=== PATIENT | female | born 1950 | race Caucasian/White ===

== ENCOUNTER → 2016-09-29 | Outpatient (CLI) | payer BC, OTHER ==
[~2016-09-29] MED LIST: IOPAMIDOL (ISOVUE 370) 100 ML BTL IV ONE
== END ==
LOC: FIMAGING 15:07
PROVIDERS: ATTEND Internal Medicine
DX: R07.9 Chest pain, unspecified (principal); R00.0 Tachycardia, unspecified; R06.02 Shortness of breath; R79.9 Abnormal finding of blood chemistry, unspecified; I77.9 Disorder of arteries and arterioles, unspecified
CPT/HCPCS: Q9967

== ENCOUNTER 2016-12-22 19:34 | Inpatient (IN) | payer BC, OTHER ==
--- NOTE | 2016-12-22 19:59 | EDPHY ---
H & P Stated Complaint: abdominal pain Time Seen by Provider: 12/22/16 19:58 - Personal History Tetanus Vaccine Date: 05/2011 - Medical/Surgical History Hx Asthma: No Hx Chronic Respiratory Disease: No Hx Diabetes: Yes Hx Cardiac Disease: No Hx Renal Disease: No Hx Cirrhosis: No Hx Alcoholism: Yes Hx HIV/AIDS: No Hx Splenectomy or Spleen Trauma: No Other PMH: chronic diarrhea. HTN, - Social History Smoking Status: Never smoked Constitutional: Initial Vital Signs Temperature (C) 37.0 C 12/22/16 19:41 Heart Rate 105 H 12/22/16 19:41 Respiratory Rate 18 12/22/16 19:41 Blood Pressure 170/97 H 12/22/16 19:41 O2 Sat (%) 98 12/22/16 19:41 O2 Delivery Mode Room Air Allergies/Adverse Reactions: benztropine mesylate [From Cogentin] Allergy (Severe, Verified 08/06/14 08:07) MUSCLE JERKING haloperidol [From Haldol] Allergy (Severe, Verified 08/06/14 08:07) MUSCLE JERKING haloperidol lactate [From Haldol] Allergy (Severe, Verified 08/06/14 08:07) MUSCLE JERKING Home Medications: Medication Instructions Recorded Bisacodyl [Bisacodyl (*)] 10 mg PO PRN PRN 10/03/13 Bumetanide [Bumex (*)] 1 mg PO DAILY 10/03/13 Estrogens,Conjugated [Premarin 0.625 mg PO DAILY 10/03/13 0.625 MG (*)] Gabapentin [Neurontin 300 MG (*)] 600 mg PO BID 10/03/13 ARIPiprazole [Abilify 10 mg (*)] 10 mg PO HS #14 tab 02/15/14 Bumetanide [Bumex (*)] 1 mg PO DAILY #14 tab 02/15/14 Diazepam [Valium 5 MG (*)] 5 mg PO HS #14 tab 02/15/14 Estrogens,Conjugated [Premarin 0.625 mg PO DAILY #14 tab 02/15/14 0.625 MG (*)] Gabapentin [Neurontin 400 MG (*)] 400 mg PO TID 14 Days cap 02/15/14 LORazepam [Ativan (*)] 0.5 mg PO DAILY PRN #10 tab 02/15/14 Effexor Xr 75MG (RX) 08/06/14 Lisinopril 08/06/14 Metformin HCl 08/06/14 Medical Decision Making - Diagnostics Imaging Results: Study: CT of the abdomen Indication: Abdominal pain Results: CT scan of the body parts was obtained. The results of the study are normal. The study was read by the radiologist, Dr. Llanos. I viewed the images myself on the PACS system. Imaging: Discussed imaging studies w/ supreme court justice Radiologist, I viewed and interpreted images myself ED Course/Re-evaluation: CHIEF COMPLAINT: Abdominal pain, nausea, vomiting HISTORY OF PRESENT ILLNESS: The patient is a 66 y/o female complaining of abdominal pain, nausea, vomiting, and diarrhea onset this morning. Yesterday her refrigerator broke and she believed she may have ingested bad food. She experienced gas and stomach pains all night. This morning she had diarrhea. She took two loperamide and no longer experienced diarrhea but her stomach pains and gas got worse. She vomited twice before coming to the ED. She had a radical hysterectomy in 2012 but still has an appendix. REVIEW OF SYSTEMS: A 10 point review of systems was performed and is negative with the exception of the elements mentioned in the history of present illness. PHYSICAL EXAM: HR, BP, O2 Sat, RR. Temp noted General Appearance: Alert, well hydrated, appropriate, and non-toxic appearing. Head: Atraumatic without scalp tenderness or obvious injury Eyes: Pupils equal, round, reactive to light and accommodation, EOMI, no trauma , no injection. Ears: Clear bilaterally, no perforation, normal landmarks Nose: Atraumatic, no rhinorrhea, clear. Throat: There is no erythema or exudates, no lesions, normal tonsils, mucus membranes moist. Neck: Supple, nontender, no lymphadenopathy. Respiratory: No retractions, no distress, no wheezes, and no accessory muscle use. Lungs are clear to auscultation bilaterally. Cardiovascular: Regular rate and rhythm, no murmurs, rubs, or gallops. Good capillary refill all extremities. Gastrointestinal: Tenderness in the lower right quadrant extending into her back, worse with palpation, abdomen is soft, non-distended, no masses, no rebound, no peritoneal signs. Musculoskeletal: Normal active ROM of all extremities, atraumatic. Neurological: Alert, appropriate, and interactive. The patient has normal DTRs and non-focal cranial nerves, motor, sensory, and cerebellar exam. Skin: No rashes, good turgor, no nodules on palpation. Past medical history: Denies Past surgical history: Radical hysterectomy but left appendix Family history: Non-contributory Social history: , mother, lives in [place] DIAGNOSTICS/PROCEDURES/CRITICAL CARE TIME: DIFFERENTIAL DIAGNOSIS: The differential diagnosis for the patient's abdominal pain included but was not limited to diverticulitis, ovarian cyst, pelvic inflammatory disease, ovarian torsion, urinary tract infection, cholecystitis, and appendicitis. MEDICAL DECISION MAKING: The patient is a 66 y/o female complaining of nausea, vomiting, diarrhea, and abdominal pain. On exam her abdomen is tender in the lower right quadrant extending into the back. She denies any associated symptoms. 4 mg Zofran, fluids, and abdominal CT with contrast ordered. 2126: Labs show elevated white blood cells and liver enzymes, and significantly elevated lipase. Waiting on imaging for further information. 2141: I spoke with Dr. Nikole Llanos, radiology, regarding this patient's images. Her images show her gallbladder has been removed but no acute processes. I plan to admit. 2143: I spoke with the hospitalist service regarding this patient. Dr. Caenla agrees to admit. I am consulting with Dr. Downing, gastroenterology. I will treat presumptively with antibiotic for possible cholangitis. 5: I spoke with Dr. Downing regarding this patient. He agrees to consult. - Data Points Laboratory Results: Laboratory Results 12/22/16 20:20 12/22/16 20:20 12/22/16 12/22/16 12/22/16 20:24 20:20 20:20 WBC 12.29 10^3/uL H 10^3/uL (3.80-9.50) RBC 4.07 10^6/uL L 10^6/uL (4.18-5.33) Hgb 12.6 g/dL g/dL (12.6-16.3) POC Hgb 12.9 gm/dL gm/dL (12.6-16.3) Hct 36.2 % L % (38.0-47.0) POC Hct 38 % % (38-47) MCV 88.9 fL fL (81.5-99.8) MCH 31.0 pg pg (27.9-34.1) MCHC 34.8 g/dL g/dL (32.4-36.7) RDW 12.4 % % (11.5-15.2) Plt Count 291 10^3/uL 10^3/uL (150-400) MPV 9.3 fL fL (8.7-11.7) Neut % (Auto) 70.8 % % (39.3-74.2) Lymph % (Auto) 17.9 % % (15.0-45.0) [place] % (Auto) 8.6 % % (4.5-13.0) Eos % (Auto) 1.6 % % (0.6-7.6) Baso % (Auto) 0.7 % % (0.3-1.7) Nucleat RBC Rel Count 0.0 % % (0.0-0.2) Absolute Neuts (auto) 8.70 10^3/uL H 10^3/uL (1.70-6.50) Absolute Lymphs (auto) 2.20 10^3/uL 10^3/uL (1.00-3.00) Absolute Monos (auto) 1.06 10^3/uL H 10^3/uL (0.30-0.80) Absolute Eos (auto) 0.20 10^3/uL 10^3/uL (0.03-0.40) Absolute Basos (auto) 0.08 10^3/uL 10^3/uL (0.02-0.10) Absolute Nucleated RBC 0.00 10^3/uL 10^3/uL (0-0.01) Immature Gran % 0.4 % % (0.0-1.1) Immature Gran # 0.05 10^3/uL 10^3/uL (0.00-0.10) POC Sodium 139 mEq/L mEq/L (134-144) Sodium 136 mEq/L mEq/L (134-144) POC Potassium 3.5 mEq/L mEq/L (3.3-5.0) Potassium 3.8 mEq/L mEq/L (3.5-5.2) POC Chloride 103 mEq/L mEq/L (97-110) Chloride 100 mEq/L mEq/L (97-110) Carbon Dioxide 25 mEq/l mEq/l (22-31) Anion Gap 11 mEq/L mEq/L (8-16) POC BUN 15 mg/dL mg/dL (7-23) BUN 15 mg/dL mg/dL (7-23) Creatinine 0.9 mg/dL mg/dL (0.6-1.0) POC Creatinine 0.9 mg/dL mg/dL (0.6-1.0) Estimated GFR > 60 Glucose 120 mg/dL H mg/dL (70-100) POC Glucose 121 mg/dL H mg/dL (70-100) Calcium 10.8 mg/dL H mg/dL (8.5-10.4) Phosphorus 4.3 mg/dL mg/dL (2.5-4.5) Total Bilirubin 1.0 mg/dL mg/dL (0.1-1.4) Conjugated Bilirubin 0.7 mg/dL H mg/dL (0.0-0.5) Unconjugated Bilirubin 0.3 mg/dL mg/dL (0.0-1.1) AST 111 IU/L H IU/L (14-46) ALT 64 IU/L H IU/L (9-52) Alkaline Phosphatase 216 IU/L H IU/L (38-126) Total Protein 7.0 g/dL g/dL (6.3-8.2) Albumin 4.1 g/dL g/dL (3.5-5.0) Lipase 41440 IU/L H IU/L (23-300) Urine Color Urine Appearance Urine pH Ur Specific [place] Urine Protein Urine Ketones Urine Blood Urine Nitrate Urine Bilirubin Urine Urobilinogen Ur Leukocyte Esterase Urine RBC Urine WBC Ur Epithelial Cells Urine Mucus Urine Glucose 12/22/16 19:50 WBC RBC Hgb POC Hgb Hct POC Hct MCV MCH MCHC RDW Plt Count MPV Neut % (Auto) Lymph % (Auto) [place] % (Auto) Eos % (Auto) Baso % (Auto) Nucleat RBC Rel Count Absolute Neuts (auto) Absolute Lymphs (auto) Absolute Monos (auto) Absolute Eos (auto) Absolute Basos (auto) Absolute Nucleated RBC Immature Gran % Immature Gran # POC Sodium Sodium POC Potassium Potassium POC Chloride Chloride Carbon Dioxide Anion Gap POC BUN BUN Creatinine POC Creatinine Estimated GFR Glucose POC Glucose Calcium Phosphorus Total Bilirubin Conjugated Bilirubin Unconjugated Bilirubin AST ALT Alkaline Phosphatase Total Protein Albumin Lipase Urine Color YELLOW Urine Appearance HAZY Urine pH 7.0 (5.0-7.5) Ur Specific [place] 1.006 (1.002-1.030) Urine Protein NEGATIVE (NEGATIVE) Urine Ketones NEGATIVE (NEGATIVE) Urine Blood 1+ H (NEGATIVE) Urine Nitrate NEGATIVE (NEGATIVE) Urine Bilirubin NEGATIVE (NEGATIVE) Urine Urobilinogen NEGATIVE EU EU (0.2-1.0) Ur Leukocyte Esterase NEGATIVE (NEGATIVE) Urine RBC NONE SEEN /hpf /hpf (0-3) Urine WBC NONE SEEN /hpf /hpf (0-3) Ur Epithelial Cells TRACE /lpf /lpf (NONE-1+) Urine Mucus TRACE /lpf /lpf (NONE-1+) Urine Glucose NEGATIVE (NEGATIVE) Medications Given: Discontinued Medications Hydromorphone HCl (Dilaudid) 1 mg IVP EDNOW ONE Stop: 12/22/16 20:08 Last Admin: 12/22/16 20:30 Dose: 1 mg Sodium Chloride (Ns) 1,000 mls @ 0 mls/hr IV EDNOW ONE; Wide Open PRN Reason: Protocol Stop: 12/22/16 20:08 Last Admin: 12/22/16 20:30 Dose: 1,000 mls Ketorolac Tromethamine (Toradol) 30 mg IVP EDNOW ONE Stop: 12/22/16 20:08 Last Admin: 12/22/16 20:30 Dose: 30 mg Ondansetron HCl (Zofran) 4 mg IVP EDNOW ONE Stop: 12/22/16 20:08 Last Admin: 12/22/16 20:30 Dose: 4 mg Point of Care Test Results: 12/22/16 20:24 POC Sodium 139 POC Potassium 3.5 POC Chloride 103 POC BUN 15 POC Creatinine 0.9 POC Glucose 121 H Departure - Departure Disposition: [facility] Inpatient Acute Clinical Impression: Elevated liver enzymes Pancreatitis Qualifiers: Chronicity: acute Pancreatitis type: other Acute pancreatitis complication: unspecified Qualified Code(s): K85.80 - Other acute pancreatitis without necrosis or infection Condition: Fair Referrals: Joseph Ramos MD [Primary Care Provider] - As per Instructions Report Scribed for: Valente Alvarez Report Scribed by: Kylie Montelongo Date of Report: 12/22/16 Time of Report: 21:25
[2016-12-22 20:03] LABS: COLOR YELLOW; LEUKOCYTE ESTERASE,URINE NEGATIVE (NEGATIVE); NITRITE,URINE NEGATIVE (NEGATIVE)
[2016-12-22] MEDS ORDERED: HYDROmorphONE/DILAUDID 1 MG/ML INJ IVP ONE ×2 (20:07→22:16)
[2016-12-22] MEDS ORDERED: ONDANSETRON 4 MG/2 ML VIAL IVP ONE (20:07)
[2016-12-22] MEDS ORDERED: NS 1,000 ML IV ONE (20:07)
[2016-12-22] MEDS ORDERED: KETOROLAC 30 MG/1 ML SDV IVP ONE (20:07)
[2016-12-22 20:15] LABS: MUCUS TRACE /lpf (NONE-1+)
[2016-12-22 20:21] LABS: RBC,URINE NONE SEEN /hpf (0-3); WBC,URINE NONE SEEN /hpf (0-3)
[2016-12-22 20:31] LABS: % IMMATURE GRANULYOCYTES 0.4 % (0.0-1.1); ABSOLUTE IMMATURE GRANULOCYTES 0.05 10^3/uL (0.00-0.10); ADD DIFF? NO; ADD MORPH? NO; ADD SCAN? NO; ATYPICAL LYMPHOCYTE FLAG 10 (0-99); FRAGMENT RBC FLAG 0 (0-99); HEMATOCRIT 36.2 % (38.0-47.0); HEMOGLOBIN 12.6 g/dL (12.6-16.3); LEFT SHIFT FLG 0 (0-99); LIPEMIA HEMOLYSIS FLAG 90 (0-99); MEAN CELL HEMOGLOBIN CONCENTR. 34.8 g/dL (32.4-36.7); MEAN CELL VOLUME 88.9 fL (81.5-99.8); MEAN PLATELET VOLUME 9.3 fL (8.7-11.7); PLATELET CLUMPS FLAG 0 (0-99); PLATELET COUNT 291 10^3/uL (150-400); RED BLOOD CELL COUNT 4.07 10^6/uL (4.18-5.33); RED CELL DISTRIBUTION WIDTH 12.4 % (11.5-15.2)
[2016-12-22 20:44] LABS: ALANINE AMINOTRANSFERASE 64 IU/L (9-52); ALBUMIN 4.1 g/dL (3.5-5.0); ALKALINE PHOSPHATASE 216 IU/L (38-126); ANION GAP 11 mEq/L (8-16); ASPARTATE AMINOTRANSFERASE 111 IU/L (14-46); BILIRUBIN-CONJUGATED 0.7 mg/dL (0.0-0.5); BILIRUBIN-UNCONJUGATED 0.3 mg/dL (0.0-1.1); CALCIUM 10.8 mg/dL (8.5-10.4); CARBON DIOXIDE 25 mEq/l (22-31); CHLORIDE 100 mEq/L (97-110); CREATININE 0.9 mg/dL (0.6-1.0); GLOMERULAR FILTRATION RATE > 60; GLUCOSE 120 mg/dL (70-100); POTASSIUM 3.8 mEq/L (3.5-5.2); SODIUM 136 mEq/L (134-144)
[2016-12-22] MEDS ORDERED: IOPAMIDOL (ISOVUE-300) 100 ML BTL ONE (21:09)
[2016-12-22] MEDS ORDERED: ONDANSETRON 4 MG/2 ML VIAL IVP PRN (22:38)
[2016-12-22] MEDS ORDERED: PROMETHAZINE HCL 25 MG/ML INJ IVP PRN (22:38)
[2016-12-22] MEDS ORDERED: D50W 25 GM/50 ML SYR IVP PRN (22:56)
[2016-12-22] MEDS ORDERED: INSULIN LISPRO 100 UNIT/ML SC SCH (23:00)
[2016-12-22] MEDS ORDERED: D10W 250 ML PRN HYPOGLYCEMIA IV (23:30)
[2016-12-22 23:40] LABS: ETHANOL SERUM < 10 mg/dL (0-10); TRIGLYCERIDE 68 mg/dL (35-135)
[2016-12-22] MEDS: NS 1,000 ML IV SCH (23:40)
[2016-12-22] MEDS: HYDROmorphONE/DILAUDID 1 MG/ML INJ IVP PRN (23:47)
[2016-12-22] MEDS: LORazepam 2 MG/ML INJ IVP PRN (23:48)
--- NOTE | 2016-12-22 23:49 | PDGENHP ---
History and Physical - Chief Complaint abdominal pain, nausea/vomiting - History of Present Illness Source - patient provides history and appears reliable. EMR reviewed. HPI - Pleasant 66 yo F with pmhx significant for HTN, schizoaffective d/o with anxiety/depression, hyperglycemia, obesity, remote history of alcoholism in remission who presents to ED today with complaint of 1 day history abdominal pain. Patient reports cramping pain started upper/mid abdomen. associated bloating, nausea/vomiting/diarrhea. pt with hx of chronic diarrhea. no melena/ hematochezia reported and diarrhea resolved after patient took 2 imodium at home. Pt reports seeing one singular small clot in her emesis otherwise nonbilious, no coffee ground emesis. Since arrival to the ED patient reports her abdominal pain has changed slightly and moved towards her right upper/ lateral abdomen but remains crampy in nature. pt denies any fevers but reports some chills. Patient reports a remote history of alcohol pancreatitis 1994. Her last reported drink was in September 2016. she does smoke marijuana multiple times daily and particularly at night. pt reports this helps her to sleep. History Information - Allergies/Home Medication List Allergies/Adverse Reactions: benztropine mesylate [From Cogentin] Allergy (Severe, Verified 08/06/14 08:07) MUSCLE JERKING haloperidol [From Haldol] Allergy (Severe, Verified 08/06/14 08:07) MUSCLE JERKING haloperidol lactate [From Haldol] Allergy (Severe, Verified 08/06/14 08:07) MUSCLE JERKING Home Medications: Bumetanide [Bumex (*)] 1 mg PO DAILY 10/03/13 [Last Taken 12/22/16] Estrogens,Conjugated [Premarin 0.625 MG (*)] 0.625 mg PO DAILY 10/03/13 [Last Taken 12/22/16] Gabapentin [Neurontin 300 MG (*)] 1,200 mg PO HS 10/03/13 [Last Taken 12/21/16] ARIPiprazole [Abilify 5 mg (*)] 5 mg PO HS 12/22/16 [Last Taken 12/21/16] Diazepam [Valium 5 MG (*)] 10 mg PO HS 12/22/16 [Last Taken 12/21/16] Herbals/Supplements -Info Only 1 ea PO DAILY 12/22/16 [Last Taken Unknown] Ibuprofen [Motrin (*)] 400 mg PO DAILY PRN 12/22/16 [Last Taken Unknown] Lisinopril [Zestril 20 mg (*)] 40 mg PO DAILY 12/22/16 [Last Taken 12/22/16] Methocarbamol [Robaxin 750 mg (*)] 750 mg PO BID 12/22/16 [Last Taken Unknown] Potassium Cl [Klor-Con 20 meq (*)] 20 meq PO DAILY 12/22/16 [Last Taken 12/22/16 ] Venlafaxine Xr [Effexor Xr] 150 mg PO DAILY 12/22/16 [Last Taken 12/22/16] metFORMIN HCL [Glucophage 500 mg (*)] 1,000 mg PO BIDMEAL 12/22/16 [Last Taken 12/22/16] I have personally reviewed and updated: family history, medical history, social history, surgical history - Past Medical History arthritis (hips) Additional medical history: chronic diarrhea, hyperglycemia, obesity, hx pancreatitis 2/2 etoh 1994, OA hips, schizoaffective d/o, anxiety, depression, HTN - Surgical History Additional surgical history: cholecystectomy, lap hyst/BSO - Family History Additional family history: mother - HTN, CAD, lung cancer. Father - pancreatic cancer - Social History Smoking Status: Never smoked Tobacco Use: Secondhand Alcohol Use: Sober Drug Use: Marijuana Additional social history: , lives with . adult children in town. Limited Code. patient does NOT want cardiac resuscitation but amenable to intubation if needed. pt desires daughter Eldon Weeks to act as proxy if needed. Review of Systems Review of Systems: ROS: 10pt was reviewed & negative except for what was stated in HPI & below Constitutional: Reports: chills. Denies: fever EENMT: Reports: other (chronic rhinorrhea, + sore throat. wears glasses. no acute changes in vision.) Cardiac: Denies: chest pain, edema, palpitations Respiratory: Reports: shortness of breath (patient notes increased SOB particularly with exertion in the last 1-2 weeks. no leg swelling.). Denies: cough Gastrointestinal: Reports: vomitting, diarrhea, nausea, other (see HPI. ). Denies: black stools, rectal bleeding Genitourinary: Reports: no symptoms. Denies: dysuria, hematuria Muscolosketal: Reports: joint pain (left shoulder), muscle pain Neurological: Reports: anxiety, depressed, headache (resolved today.). Denies: numbness, tremors, weakness Hematologic/Lymphatic: Reports: no symptoms Physical Exam Physical Exam: Temp Pulse Resp BP Pulse Ox 36.6 C 80 18 151/79 H 93 12/22/16 23:09 12/22/16 23:09 12/22/16 23:09 12/22/16 23:09 12/22/16 23:09 O2 (L/minute) 1 Constitutional: no apparent distress, obese, uncomfortable, other (NAD. pleasant obese adult female lays quietly in bed. does appear uncomfortable and rubs right abdomen for comfort. ) Eyes: PERRL, anicteric sclera, EOMI, No icteric sclera, No scleral injection Ears, Nose, Mouth, Throat: dry mucous membranes, other (no nasal discharge. dentition intact. ) Cardiovascular: regular rate and rhythym, No systolic murmur, No edema Peripheral Pulses: 2+: dorsalis-pedis (R), dorsalis-pedis (L) Respiratory: no respiratory distress, no rales or rhonchi, clear to auscultation Gastrointestinal: tenderness (epigastrium, LUQ, RUQ. negative coon's sign. ), distension, other (obese abdomen. ) Genitourinary: no bladder fullness, no bladder tenderness Skin: warm, normal color, No rash Musculoskeletal: full muscle strength, No generalized weakness Neurologic: AAOx3, other (grossly nonfocal exam. no facial drooping. no weakness. ), No weakness, No numbness Psychiatric: anxious, other (pleasant. thought process, content and questions appropriate. ), No depressed, No suicidal ideation, No poor insight, No poor judgement, No poor memory Lymph, Heme, Immunologic: no cervical LAD, No lymphadenopathy Lab Data & Imaging Review 12/22/16 20:20 12/22/16 20:20 WBC 12.29 10^3/uL (3.80-9.50) H 12/22/16 20:20 RBC 4.07 10^6/uL (4.18-5.33) L 12/22/16 20:20 Hgb 12.6 g/dL (12.6-16.3) 12/22/16 20:20 POC Hgb 12.9 gm/dL (12.6-16.3) 12/22/16 20:24 Hct 36.2 % (38.0-47.0) L 12/22/16 20:20 POC Hct 38 % (38-47) 12/22/16 20:24 MCV 88.9 fL (81.5-99.8) 12/22/16 20:20 MCH 31.0 pg (27.9-34.1) 12/22/16 20:20 MCHC 34.8 g/dL (32.4-36.7) 12/22/16 20:20 RDW 12.4 % (11.5-15.2) 12/22/16 20:20 Plt Count 291 10^3/uL (150-400) 12/22/16 20:20 MPV 9.3 fL (8.7-11.7) 12/22/16 20:20 Neut % (Auto) 70.8 % (39.3-74.2) 12/22/16 20:20 Lymph % (Auto) 17.9 % (15.0-45.0) 12/22/16 20:20 [place] % (Auto) 8.6 % (4.5-13.0) 12/22/16 20:20 Eos % (Auto) 1.6 % (0.6-7.6) 12/22/16 20:20 Baso % (Auto) 0.7 % (0.3-1.7) 12/22/16 20:20 Nucleat RBC Rel Count 0.0 % (0.0-0.2) 12/22/16 20:20 Absolute Neuts (auto) 8.70 10^3/uL (1.70-6.50) H 12/22/16 20:20 Absolute Lymphs (auto) 2.20 10^3/uL (1.00-3.00) 12/22/16 20:20 Absolute Monos (auto) 1.06 10^3/uL (0.30-0.80) H 12/22/16 20:20 Absolute Eos (auto) 0.20 10^3/uL (0.03-0.40) 12/22/16 20:20 Absolute Basos (auto) 0.08 10^3/uL (0.02-0.10) 12/22/16 20:20 Absolute Nucleated RBC 0.00 10^3/uL (0-0.01) 12/22/16 20:20 Immature Gran % 0.4 % (0.0-1.1) 12/22/16 20:20 Immature Gran # 0.05 10^3/uL (0.00-0.10) 12/22/16 20:20 POC Sodium 139 mEq/L (134-144) 12/22/16 20:24 Sodium 136 mEq/L (134-144) 12/22/16 20:20 POC Potassium 3.5 mEq/L (3.3-5.0) 12/22/16 20:24 Potassium 3.8 mEq/L (3.5-5.2) 12/22/16 20:20 POC Chloride 103 mEq/L (97-110) 12/22/16 20:24 Chloride 100 mEq/L (97-110) 12/22/16 20:20 Carbon Dioxide 25 mEq/l (22-31) 12/22/16 20:20 Anion Gap 11 mEq/L (8-16) 12/22/16 20:20 POC BUN 15 mg/dL (7-23) 12/22/16 20:24 BUN 15 mg/dL (7-23) 12/22/16 20:20 Creatinine 0.9 mg/dL (0.6-1.0) 12/22/16 20:20 POC Creatinine 0.9 mg/dL (0.6-1.0) 12/22/16 20:24 Estimated GFR > 60 12/22/16 20:20 Glucose 120 mg/dL (70-100) H 12/22/16 20:20 POC Glucose 121 mg/dL (70-100) H 12/22/16 20:24 Calcium 10.8 mg/dL (8.5-10.4) H 12/22/16 20:20 Phosphorus 4.3 mg/dL (2.5-4.5) 12/22/16 20:20 Total Bilirubin 1.0 mg/dL (0.1-1.4) 12/22/16 20:20 Conjugated Bilirubin 0.7 mg/dL (0.0-0.5) H 12/22/16 20:20 Unconjugated Bilirubin 0.3 mg/dL (0.0-1.1) 12/22/16 20:20 AST 111 IU/L (14-46) H 12/22/16 20:20 ALT 64 IU/L (9-52) H 12/22/16 20:20 Alkaline Phosphatase 216 IU/L (38-126) H 12/22/16 20:20 Total Protein 7.0 g/dL (6.3-8.2) 12/22/16 20:20 Albumin 4.1 g/dL (3.5-5.0) 12/22/16 20:20 Triglycerides 68 mg/dL (35-135) 12/22/16 20:20 Lipase 36421 IU/L (23-300) H 12/22/16 20:20 Urine Color YELLOW 12/22/16 19:50 Urine Appearance HAZY 12/22/16 19:50 Urine pH 7.0 (5.0-7.5) 12/22/16 19:50 Ur Specific [place] 1.006 (1.002-1.030) 12/22/16 19:50 Urine Protein NEGATIVE (NEGATIVE) 12/22/16 19:50 Urine Ketones NEGATIVE (NEGATIVE) 12/22/16 19:50 Urine Blood 1+ (NEGATIVE) H 12/22/16 19:50 Urine Nitrate NEGATIVE (NEGATIVE) 12/22/16 19:50 Urine Bilirubin NEGATIVE (NEGATIVE) 12/22/16 19:50 Urine Urobilinogen NEGATIVE EU (0.2-1.0) 12/22/16 19:50 Ur Leukocyte Esterase NEGATIVE (NEGATIVE) 12/22/16 19:50 Urine RBC NONE SEEN /hpf (0-3) 12/22/16 19:50 Urine WBC NONE SEEN /hpf (0-3) 12/22/16 19:50 Ur Epithelial Cells TRACE /lpf (NONE-1+) 12/22/16 19:50 Urine Mucus TRACE /lpf (NONE-1+) 12/22/16 19:50 Urine Glucose NEGATIVE (NEGATIVE) 12/22/16 19:50 Ethyl Alcohol < 10 mg/dL (0-10) 12/22/16 20:20 Visualized and Interpreted imaging results: Yes Interpretation: . CT Scan of the Abdomen and Pelvis (With Contrast). Clinical Indications: Abdominal pain. Elevated lipase. Technique: Dilute contrast was given orally prior to the scan. During the machine power injection of 98 mL of. Isovue-300 intravenously, multidetector helical CT imaging was performed from the diaphragm to the pubic. symphysis. Coronal and parasagittal reformatted images are reviewed on the workstation. Dose reduction. techniques were utilized. Comparison: March 04, 2013. Findings : The patient is postcholecystectomy. The biliary tree is mildly dilated at 10 mm. However, this is within. normal limits given postcholecystectomy state. There is minimal intrahepatic biliary dilatation. This again is. nonspecific. The duct is well visualized on coronal reformatted images, and it tapers into the duodenum. No obvious. radiopaque filling defect is seen. The pancreatic duct is not dilated. There is no stranding or inflammation around. the pancreas. No fluid collection. No ascites in the abdomen and pelvis. The appendix is normal. The patient has diverticulosis of the descending. colon. No focal wall thickening. The liver, spleen, adrenal glands, and kidneys are otherwise normal. Small bowels enhance normally. There is. moderate degenerative disk height loss of the lower lumbar spine, worst at L5-S1. No compression deformity. There. is moderate canal compromise at L3-L4 and L4-L5. Impression: 1. 9 to 10 mm common duct and proper hepatic duct, with minimal intrahepatic biliary dilatation. This is within. normal limits for a postcholecystectomy patient. 2. No CT evidence for acute pancreatitis. 3. Descending colonic diverticulosis. 4. Moderate degenerative lower lumbar spine disk disease, with appearance of canal stenosis at L3-L4 and L4-L5. E:JM/ amm. Dictated By: Nikole Llanos MD. *This report was compiled using a voice recognition dictation system and may contain typographical errors*. D: 2142 T: [email or web address].Radha [id number]/22/162204. Electronically Signed by: Nikole Llanos MD [id number]. CC: SHERI JOINER,JOSE M Lawson; Valente Alvarez MD; Lyndsey Canela MD~. STEPHANIE BELL. : 1950 Age: 66 F2W Assessment & Plan Assessment: 1. Acute pancreatitis - patient denies any recent etoh use and level is negative. she has a history of cholecystectomy and CT abd/pelvis neg for evidence of inappropriate CBD dilation or intra/extra hepatic dilation. GI was consulted from the ED and will plan to see patient in AM. check triglyeride level. patient afebrile. consider antibiotic therapy and cultures if so overnight. patient will remain NPO at this time. no active nausea/vomiting but prn ngt if pt develops sx. repeat lipase and amylase in AM. 2 .transaminitis - IVF. repeat LFTs in AM. 3. abdominal pain - prn dilaudid, ativan and supportive care. 4. nausea/vomiting - improved s/p zofran. 5. SIRS - patient with tachycardia, leukocytosis. likely 2/2 acute pancreatitis. holding antibiotics unless pt develops fever. chronic medical problems. 6. hyperglycemia - holding metformin. low dose ISS at this time and accuchecks. pt will be npo. 7. benign essential HTN - monitor BPs. hydralazine IV prn for now. resume home medications when diet advanced. pt reports BPs have been rising recently 8. obesity (BMI 38.7) FEN - IVF overnight. npo at this time. electrolyte replacement prn. PPX - SCDs. holding anticoagulation overnight pending GI consultation and recommendations. COR - Limited. No compressions or cardiac resuscitation. Patient amenable to intubation. Desires Daughter Eldon Weeks to act as proxy if needed. Dispo - Admit to inpatient status on PCU for acute pancreatitis.
[2016-12-23 02:13] LABS: PHENCYCLIDINE URINE BCH < 6 ng/ml (NEGATIVE); PHENCYCLIDINE URINE BCH NEGATIVE (NEGATIVE)
[2016-12-23 02:47] LABS: TETRAHYDROCANNABINOL URINE 464 ng/mL (NEGATIVE)
[2016-12-23 04:13] LABS: % IMMATURE GRANULYOCYTES 0.3 % (0.0-1.1); ABSOLUTE IMMATURE GRANULOCYTES 0.03 10^3/uL (0.00-0.10); ADD DIFF? NO; ADD MORPH? NO; ADD SCAN? NO; ATYPICAL LYMPHOCYTE FLAG 10 (0-99); FRAGMENT RBC FLAG 0 (0-99); HEMATOCRIT 35.9 % (38.0-47.0); LEFT SHIFT FLG 0 (0-99); LIPEMIA HEMOLYSIS FLAG 80 (0-99); MEAN CELL HEMOGLOBIN 30.6 pg (27.9-34.1); MEAN CELL HEMOGLOBIN CONCENTR. 33.4 g/dL (32.4-36.7); MEAN CELL VOLUME 91.6 fL (81.5-99.8); MEAN PLATELET VOLUME 9.5 fL (8.7-11.7); PLATELET CLUMPS FLAG 0 (0-99); PLATELET COUNT 312 10^3/uL (150-400); RED BLOOD CELL COUNT 3.92 10^6/uL (4.18-5.33); RED CELL DISTRIBUTION WIDTH 12.6 % (11.5-15.2)
[2016-12-23 04:21] LABS: APTT 25.4 SEC (23.0-38.0); INR 0.97 (0.83-1.16); PROTIME(PATIENT) 12.8 SEC (12.0-15.0)
[2016-12-23 04:29] LABS: ALANINE AMINOTRANSFERASE 63 IU/L (9-52); ALBUMIN 3.8 g/dL (3.5-5.0); ALKALINE PHOSPHATASE 160 IU/L (38-126); AMYLASE 990 IU/L (30-110); ANION GAP 10 mEq/L (8-16); ASPARTATE AMINOTRANSFERASE 74 IU/L (14-46); BILIRUBIN,TOTAL 0.5 mg/dL (0.1-1.4); CALCIUM 9.6 mg/dL (8.5-10.4); CARBON DIOXIDE 23 mEq/l (22-31); CHLORIDE 106 mEq/L (97-110); GLOMERULAR FILTRATION RATE 55; GLUCOSE 85 mg/dL (70-100); MAGNESIUM 1.5 mg/dL (1.6-2.3); POTASSIUM 4.7 mEq/L (3.5-5.2); SODIUM 139 mEq/L (134-144); TOTAL PROTEIN 6.7 g/dL (6.3-8.2)
[2016-12-23] MEDS: HYDROmorphONE/DILAUDID 1 MG/ML INJ IVP PRN ×4 (08:37→21:15)
[2016-12-23] MEDS: LORazepam 2 MG/ML INJ IVP PRN ×2 (08:39→12:47)
--- NOTE | 2016-12-23 09:40 | PDMN ---
Medical Necessity Medical necessity: M250 pancreatitis- 2 days- abd pain with serum lipase > 3X upper limit ( 35386) amylase > 3 X upper limit ( 990) , elevated liver enzymes, SIRS- tachycardia, leukocytosis, -- NPO, IV pain meds, IV fluids,
--- NOTE | 2016-12-23 11:32 | GCON ---
[f rep st] CONSULTATION DATE OF CONSULTATION: 12/23/2016 CHIEF COMPLAINT: Acute pancreatitis. Dear Dr. Canela: Thank you very kindly for asking me to evaluate this patient in consultation for a chief complaint of abdominal pain attributed to acute pancreatitis. She is a pleasant 66-year-old female, who developed the onset of abdominal pain on Thursday evening. I t was epigastric and about a 6/10 in severity and radiated into her flank. This was associated with diarrhea. She reports having trouble with chronic diarrhea ever since a cholecystectomy in 2001 whic h she says was for "inflammation". She has a remote history of pancreatitis due to alcohol in 1994 a t which time, she was drinking 2 bottles of wine daily. She has not had any recent alcohol intake. She describes episodes of nausea and vomiting although does not report whether it was bilious or bloo dy. She says she "does not remember" what the vomiting looked like. She says the diarrhea however w as nonbloody. This is been chronic, however, she has not had any more diarrhea since admission. Her pain continues however but is localized to the right upper quadrant. Her last use of alcohol she re ports was in September of 2016. A CT scan on admission revealed a dilated common bile duct at 10 mm post cholecystectomy and no CT evidence for acute pancreatitis. There was no other explanation for pain. There was very minimal intrahepatic ductal dilation. She denies any fever or chills. I am asked to assist with further evaluation and management. PAST MEDICAL HISTORY: 1. Significant for a remote history of a single episode of alcoholic pancreatitis in 1994. 2. Insomnia. 3. Schizoaffective disorder. 4. Chronic diarrhea. 5. Obesity. 6. Hypertension. 7. Depression. 8. Anxiety. 9. Osteoarthritis. PAST SURGICAL HISTORY: Cholecystectomy for "gallbladder inflammation". She also had a laparoscopic hysterectomy. FAMILY HISTORY: For hypertension, coronary disease. Her father has had pancreatic cancer. SOCIAL HISTORY: The patient uses marijuana daily mostly to sleep. She drinks alcohol chronically. Has had a history of alcoholism and last alcohol use was in September of 2016. REVIEW OF SYSTEMS: CONSTITUTIONAL: Denies fever, chills, nausea, weight loss, or night sweats. SUN NT: Denies headache, visual disturbances, sore throat. No difficulty swallowing. PULMONARY: No co ugh, shortness of breath. CARDIOVASCULAR: No chest pain or palpitations. GI: She reports chronic nonbloody diarrhea, abdominal pain that began since Thursday, nausea with episodes of vomiting that she does not report as being bloody although she cannot remember the characteristics of the vomit. She denies heartburn or dysphagia. There has been no unintentional weight loss. RHEUMATOLOGIC: She rep orts hip pain bilaterally, which is chronic. DERMATOLOGIC: No jaundice, pruritus or rash. NEUROLOG IC: No falls, paresthesias or focal motor weakness. GENITOURINARY: No hematuria or dysuria. GYNEC OLOGIC: No vaginal bleeding or discharge. ALLERGIES: Include Cogentin, Haldol. MEDICATIONS: Include: Bumex, conjugated estrogen, gabapentin, Abilify, Valium an herbal supplement of unknown type, ibuprofen 400 mg daily as needed for hip pain, Zestril 20 mg daily, Robaxin b.i.d., potassium, Effexor 150 mg p.o. daily, metformin 500 mg b.i.d. PHYSICAL EXAM: VITAL SIGNS: Blood pressure is 148/81 with a pulse of 65, respirations are 18, oxyge nation is 99% on 2 L, temperature is 36.4. GENERAL: Comfortable female in no acute distress. HEENT : Normocephalic, atraumatic. Sclerae anicteric. Oropharynx clear. NECK: Supple. PULMONARY: Clear to auscultation bilaterally. CARDIOVASCULAR: Regular rate and rhythm without murm ur, rub, or gallop. GI: There is mild tenderness to the right upper quadrant without Dillon sign. No rebound or guardin g. Normal bowel sounds. No ascites. No herniation. No abdominal bruit. MUSCULOSKELETAL: Normal gait and station without joint deformity swelling or warmth. No palmar erythema or cyanosis or clubb ing. DERMATOLOGIC: No jaundice rash or pruritus. NEUROLOGIC: Alert to person, place, and time. C ranial nerves grossly normal. Motor nonfocal. LABORATORY DATA: Includes laboratories showing a white blood count of 10.2, hematocrit 35.9, platele ts are 312. Sodium 139, potassium 4.7, chloride 106, bicarbonate 23, BUN is 15, creatinine 1.0, gluc ose 85. Admission LFTs show total bilirubin of 1.0 with an alkaline phosphatase that is elevated at 216. Her AST is 111, her ALT is 64. Albumin 4.1, total protein 7.0, lipase is 14,047. Today's LFTs on 12/23/2016 showed a total bilirubin of 0.5, alkaline phosphatase is decreased to 160, AST is down to 74, ALT 63, amylase is 998. Lipase is 3798; these are all improved. Imaging includes a CT scan of the abdomen and pelvis with oral and IV contrast on 12/22/2016. There is an absent gallbladder. The biliary tree is mildly dilated to a maximum of 10 mm and tapers normal ly through the duodenum. There was very minimal intrahepatic biliary ductal dilatation. No obvious radiopaque filling defect is visualized the pancreatic duct is nondilated. There is no pancreatic in flammation or stranding. No fluid collection. There is no ascites the appendix is normal. There wa s diverticulosis to the descending colon, without wall thickening. The liver is otherwise unremarkab le without abnormality. The small bowel is normal. There is degenerative disk disease. IMPRESSION: 1. Acute pancreatitis. 2. Dilated common bile duct. 3. Elevated LFTs. 4. Epigastric and right upper quadrant pain. 5. Nausea with vomiting. 6. Remote history of alcoholism. RECOMMENDATIONS: 1. MRCP to better evaluate the dilated biliary anatomy and to help determine if there is an obstruct kwame cause for her episode of recurrent pancreatitis with her last being in 1994 and being related to alcohol. 2. Contrasted MRI of the pancreas to better evaluate the pancreatic anatomy given her family history of pancreatic cancer and recurrent episodes of pancreatitis. 3. If the MRCP is nondiagnostic, I would recommend an endoscopic ultrasound with potential followed by ERCP to exclude things such as a distal biliary stricture, papillary stenosis or choledocholithias is in a better way to ensure there is no cause for the recurrent pancreatitis. The EUS portion of e exam can also better delineate pancreatic anatomy. 4. N.p.o. 5. IV fluid resuscitation. 6. Continue with pain control. 7. Further recommendations to follow her MR imaging. 8. Monitor LFTs. /[id number]/MODL
[2016-12-23] MEDS: VENLAFAXINE XR 150 MG CAP PO SCH (11:39)
[2016-12-23] MEDS: LISINOPRIL 20 MG TAB PO SCH (11:39)
[2016-12-23] MEDS: NS 1,000 ML IV SCH ×3 (11:41→23:35)
[2016-12-23] MEDS ORDERED: GADOBUTROL 10 ML VIAL IVP ONE (13:41)
--- NOTE | 2016-12-23 15:17 | ASMTCMCOM ---
CM Note CM Note Notes: 12/23/2016 Case Management Note: Reviewed chart, spoke w/RN. No case management d/c needs identified d/t pt age, marital status and activity levels prior to admission. Case Management d/c poc: Home w/family support when medically stable with follow up as directed. Case Management available if needs change. Date Signed: 12/23/2016 03:16 PM Electronically Signed By:Caitlin Lay RN
[2016-12-23] MEDS ORDERED: PROTOCOL POTASSIUM 1 DOSE MISC PRN (15:34)
[2016-12-23] MEDS ORDERED: PROTOCOL MAGNESIUM 1 DOSE IV PRN (15:34)
[2016-12-23] MEDS ORDERED: MAGNESIUM SULF 1 GM/DEXTROSE 100 ML IV ONE (15:36)
--- NOTE | 2016-12-23 17:18 | HOSPPROG ---
Hospitalist Progress Note Assessment/Plan: 66 yo F with PMH of HTN, schizoaffective d/o presenting with acute pancreatitis # acute pancreatitis: without hx of etoh use recently and patient s/p cholecystectomy. She was noted to have dilated CBD on personal review of abd CT and per GI recs, MRCP was obtained. This showed no mass or other clear obstruction, but continued biliary ductal dilation. Likely f/u with EUS/ERCP. For now conservative mgmt with bowel rest, IVF, pain meds. # transaminitis: LFTs trending down already slightly, in setting of above and further w/u as above # schizoaffective d/o: patient missed antipsychotic yesterday and notes that today she is having slight increase in auditory hallucinations, behaviorally well controlled. She is requesting full dose abilify tonight (usually takes 1/2) # n/v: in setting of acute pancreatitis, managed with antiemetics # DM: started on sSI, holding metformin # htn: continue lisinopril # dispo: IP status, will need > 48 hours stay for eval/mgmt of above Care plan reviewed with GI. Patient new to my care, old records reviewed/ summarized as above. Care plan reviewed with patient's daughter present at bedside. Subjective: patient notes continued abdominal pain as well as continued nausea, has been starting to hear voices a bit Objective: Vital Signs Temp Pulse Resp BP Pulse Ox 36.7 C 76 18 162/97 H 94 12/23/16 15:36 12/23/16 15:36 12/23/16 15:36 12/23/16 15:36 12/23/16 15:37 Laboratory Results 12/23/16 03:26 12/23/16 03:26 12/22/16 12/23/16 12/24/16 05:59 05:59 05:59 Intake Total 1900 1300 Balance 1900 1300 PT 12.8 SEC (12.0-15.0) 12/23/16 03:26 INR 0.97 (0.83-1.16) 12/23/16 03:26 awake alert nad anicteric op clear rrr no mrg cta b soft dec bs, diffuse right sided ttp no cce warm dry well perfused oriented appropriate ICD10 Worksheet Patient Problems: Problems Problem Status Onset Schizoaffective disorder, depressive type Active Alcohol dependence Active Anxiety Acute Pancreatitis Acute Elevated liver enzymes Acute
[2016-12-23] MEDS: GABAPENTIN 300 MG CAP PO SCH (19:30)
[2016-12-23] MEDS: DIAZEPAM 5 MG TAB PO SCH (19:30)
[2016-12-23] MEDS: METHOCARBAMOL 750 MG TAB PO SCH (19:30)
[2016-12-23] MEDS: ARIPiprazole 5 MG TAB PO SCH (19:31)
[2016-12-23] MEDS: ONDANSETRON DISINTEGRATING 4 MG TAB PO PRN ×2 (19:31→23:35)
[2016-12-23 20:03] LABS: MAGNESIUM 1.9 mg/dL (1.6-2.3); POTASSIUM 4.3 mEq/L (3.5-5.2)
[2016-12-23] MEDS ORDERED: ARIPiprazole 5 MG TAB PO ONE (21:00)
[2016-12-24] MEDS: INSULIN LISPRO 100 UNIT/ML SC SCH ×5 (00:21→20:30)
[2016-12-24] MEDS: LORazepam 2 MG/ML INJ IVP PRN ×2 (02:27→15:55)
[2016-12-24 04:45] LABS: MAGNESIUM 1.7 mg/dL (1.6-2.3); POTASSIUM 4.7 mEq/L (3.5-5.2)
[2016-12-24] MEDS: LISINOPRIL 20 MG TAB PO SCH (08:20)
[2016-12-24] MEDS: VENLAFAXINE XR 150 MG CAP PO SCH (08:20)
[2016-12-24] MEDS: METHOCARBAMOL 750 MG TAB PO SCH ×2 (08:20→20:18)
[2016-12-24] MEDS: ESTROGENS,CONJUGATED 0.625 MG TAB PO SCH (08:20)
[2016-12-24] MEDS ORDERED: MAGNESIUM SULF 1 GM/DEXTROSE 100 ML IV ONE (09:42)
[2016-12-24 11:38] LABS: HEMATOCRIT 33.6 % (38.0-47.0); HEMOGLOBIN 11.1 g/dL (12.6-16.3); MEAN CELL HEMOGLOBIN 30.8 pg (27.9-34.1); MEAN CELL VOLUME 93.3 fL (81.5-99.8); RED BLOOD CELL COUNT 3.6 10^6/uL (4.18-5.33)
[2016-12-24 12:07] LABS: ALBUMIN 3.4 g/dL (3.5-5.0); BILIRUBIN,TOTAL 0.4 mg/dL (0.1-1.4); BILIRUBIN-CONJUGATED 0.2 mg/dL (0.0-0.5); BILIRUBIN-UNCONJUGATED 0.2 mg/dL (0.0-1.1); TOTAL PROTEIN 6.2 g/dL (6.3-8.2)
--- NOTE | 2016-12-24 12:08 | SOAPPROG ---
KATHLEEN Progress Note Assessment/Plan: Assessment: 1. Acute pancreatitis 2. Elevated LFTs 3. RUQ pain 4. N/V has resolved. Plan: 1. MRCP today confirms CT findings of dilated CBD and maybe mild intrahepatic dilation centrally. The CBD is uniformly dilated to the level of the papilla ( possibly a papillary stenosis from prior stone passage). 2. No clear pancreatitis on MRI or CT 3. Labs today pending, but as her pain has improved alot and she wants to eat will try to feed her today if her labs are better. 4. She will need EUS/ERC but this can be done as outpatient if she tolerates po without worsening of labs. I have tentatively set up her procedure for Thursday. 5. Will await todays labs and if better start clears and monitor. 12/24/16 12:01 Subjective: CC: RUQ pain Much improved but still present. No N/V or fever. Had diarrhea (chronically) but this has stopped. She wants to eat today. I have reviewed her MRI and plan with her today. Objective: Vital Signs Temp Pulse Resp BP Pulse Ox 36.6 C 84 18 174/108 H 94 12/24/16 08:00 12/24/16 08:00 12/24/16 08:00 12/24/16 08:00 12/24/16 08:00 Laboratory Results 12/24/16 11:28 12/24/16 03:33 12/23/16 12/24/16 12/25/16 05:59 05:59 05:59 Intake Total 1900 2950 Balance 1900 2950 PT 12.8 SEC (12.0-15.0) 12/23/16 03:26 INR 0.97 (0.83-1.16) 12/23/16 03:26 Physical Exam - Physical Exam General Appearance: no apparent distress EENT: normal ENT inspection, No scleral icterus (R), No scleral icterus (L) Neck: full range of motion, supple Respiratory: lungs clear, normal breath sounds Cardiac/Chest: regular rate, rhythm Abdomen: non-tender, soft, No distended, No guarding, No rebound, No ascites Skin: normal color, warm/dry Lymphatic: no adenopathy Extremities: No swelling Neuro/Psych: alert, normal mood/affect, oriented x 3 ICD10 Worksheet Patient Problems: Problems Problem Status Onset Elevated liver enzymes Acute Pancreatitis Acute Alcohol dependence Active Schizoaffective disorder, depressive type Active Anxiety Acute
[2016-12-24] MEDS: hydrALAZINE 20 MG/ML VIAL IVP PRN (15:09)
[2016-12-24] MEDS ORDERED: SIMETHICONE DROPS 30 ML BOTTLE PO PRN (15:28)
[2016-12-24] MEDS ORDERED: CALCIUM CARBONATE 500 MG CHEWABLE TAB PO PRN (15:29)
[2016-12-24] MEDS ORDERED: SIMETHICONE 80 MG TAB CHEW PO PRN (15:53)
[2016-12-24] MEDS: ENOXAPARIN 40 MG/0.4 ML SYR SC SCH (16:03)
--- NOTE | 2016-12-24 16:51 | HOSPPROG ---
Hospitalist Progress Note Assessment/Plan: 66 yo F with PMH of HTN, schizoaffective d/o presenting with acute pancreatitis # acute pancreatitis: without hx of etoh use recently and patient s/p cholecystectomy. She was noted to have dilated CBD on both MRCP and abd CT. Reviewed care plan with GI and will require EUS possible ERCP to be sure no retained stone/sludging responsible. For now, will continue IVF and pain medications, when able to tolerate PO will dc--today has had worse pain with clears. Lipase trending down. # transaminitis: LFTs continue to trend down # schizoaffective d/o: continue abilify is doing well but continues to have significant anxiety likely driven in part by being here # n/v: in setting of acute pancreatitis, managed with antiemetics # DM: started on SSI, holding metformin # htn: continue lisinopril # dispo: IP status, will need > 48 hours stay for eval/mgmt of above Care plan reviewed with GI. Subjective: no significant overnight events, patient continues to have abdominal pain but nausea has improved Objective: Vital Signs Temp Pulse Resp BP Pulse Ox 37.0 C 95 16 185/101 H 90 L 12/24/16 15:50 12/24/16 15:50 12/24/16 15:50 12/24/16 15:50 12/24/16 15:50 Laboratory Results 12/24/16 11:28 12/24/16 03:33 12/23/16 12/24/16 12/25/16 05:59 05:59 05:59 Intake Total 1900 2950 Balance 1900 2950 PT 12.8 SEC (12.0-15.0) 12/23/16 03:26 INR 0.97 (0.83-1.16) 12/23/16 03:26 awake alert nad anicteric op clear rrr no mrg cta b soft dec bs, diffuse right sided ttp no cce warm dry well perfused oriented appropriate - Time Spent With Patient Time Spent with Patient: greater than 35 minutes Time Spent with Patient: Greater than 35 minutes spent on this patients care, greater than 50% of time spent counseling, educating, and coordinating care regarding the above mentioned plan. ICD10 Worksheet Patient Problems: Problems Problem Status Onset Elevated liver enzymes Acute Pancreatitis Acute Alcohol dependence Active Schizoaffective disorder, depressive type Active Anxiety Acute
[2016-12-24] MEDS: GABAPENTIN 300 MG CAP PO SCH (20:18)
[2016-12-24] MEDS: DIAZEPAM 5 MG TAB PO SCH (20:19)
[2016-12-24] MEDS: ARIPiprazole 5 MG TAB PO SCH (20:19)
[2016-12-25 03:53] LABS: ALANINE AMINOTRANSFERASE 32 IU/L (9-52); ALBUMIN 3.1 g/dL (3.5-5.0); ALKALINE PHOSPHATASE 89 IU/L (38-126); ASPARTATE AMINOTRANSFERASE 20 IU/L (14-46); BILIRUBIN,TOTAL 0.4 mg/dL (0.1-1.4); BILIRUBIN-CONJUGATED 0.2 mg/dL (0.0-0.5); BILIRUBIN-UNCONJUGATED 0.2 mg/dL (0.0-1.1); MAGNESIUM 1.9 mg/dL (1.6-2.3); POTASSIUM 4.1 mEq/L (3.5-5.2); TOTAL PROTEIN 5.8 g/dL (6.3-8.2)
[2016-12-25] MEDS: LORazepam 2 MG/ML INJ IVP PRN (05:00)
[2016-12-25] MEDS: hydrALAZINE 20 MG/ML VIAL IVP PRN (05:06)
[2016-12-25] MEDS ORDERED: HALOPERIDOL LACT 5 MG/ML INJ IVP ONE (05:39)
[2016-12-25] MEDS: INSULIN LISPRO 100 UNIT/ML SC SCH (05:45)
[2016-12-25 08:38] VITALS: BP 166/87; PULSE 99; RESP 18; TEMP 98.3; O2SAT 93
--- NOTE | 2016-12-25 09:28 | PDDCSUM ---
Discharge Summary Discharge Summary: Dates of service 12/22-12/25/16 consultations: GI Procedures performed: abd CT, MRCP Hospital course by problem: # acute pancreatitis: without hx of etoh use recently and patient s/p cholecystectomy. She was noted to have dilated CBD on both MRCP and abd CT. symptomatically improving and tolerating diet without issues, lipase trended down. Plan is for OP EUS/ERCP this week with Dr. Manrique, will be completed as an OP. # transaminitis: LFTs continue to trend down, further w/u with EUS and likely ERCP as above # schizoaffective d/o: continue abilify is doing well but continues to have significant anxiety likely driven in part by being here # n/v: in setting of acute pancreatitis, managed with antiemetics # DM: started on SSI, holding metformin while NPO # htn: continue lisinopril DC home f/u with GI as scheduled for procedure this week, f/u with PCP No changes made to OP medications > 35 min spent in dc of patient, more than half in coordination of care
[2016-12-25] MEDS: VENLAFAXINE XR 150 MG CAP PO SCH (09:49)
[2016-12-25] MEDS: LISINOPRIL 20 MG TAB PO SCH (09:49)
[2016-12-25] MEDS: METHOCARBAMOL 750 MG TAB PO SCH (09:49)
[2016-12-25] MEDS: ESTROGENS,CONJUGATED 0.625 MG TAB PO SCH (09:50)
[2016-12-25] MEDS: ENOXAPARIN 40 MG/0.4 ML SYR SC SCH (09:50)
--- NOTE | 2016-12-25 14:37 | ASDISCHSUM ---
Discharge Information Plan Status:Home with No Needs Medically Cleared to Leave:12/25/2016 Discharge Date:12/25/2016 12:28 PM CM D/C Disposition:Home, Routine, Self-Care ADT D/C Disposition:Home, Routine, Self-Care Projected Discharge Date:12/25/2016 12:00 AM Transportation at D/C: Discharge Delay Reason: Follow-Up Date:12/25/2016 12:00 AM Discharge Slot: Final Diagnosis: Placement Information Patient Contact Information Contact Name:TOM Relationship: Address:[address] [place] [address] Work Phone: City:[place] Alternate Phone: [facility]/Zip Code:[place] [address] Email: Financial Information Financial Class:HMO and PPO Plans Primary Plan Desc: OUT OF STATE PPO Primary Plan Number:[id number] Secondary Plan Desc:[facility] Secondary Plan Number:[id number] Assessment Information BC CM Progress Note CM Note CM Note Notes: 12/23/2016 Case Management Note: Reviewed chart, spoke w/RN. No case management d/c needs identified d/t pt age, marital status and activity levels prior to admission. Case Management d/c poc: Home w/family support when medically stable with follow up as directed. Case Management available if needs change. Date Signed: 12/23/2016 03:16 PM Electronically Signed By:Caitlin Lay RN Intervention Information Intervention Type:*Incorrect Registration Date of Service:12/23/2016 11:15 AM Patient Type:Inpatient Staff Member:YOSEPH Jacinto Dina Hours: Discipline: Severity: Comment:
== END 2016-12-25 12:28 | disposition home or self-care (01) | DRG 440 ==
LOC: OBSVTOIN 21:46 → F2W 22:43
PROVIDERS: ADMIT Family Medicine; ATTEND Internal Medicine
DX: K85.90 Acute pancreatitis without necrosis or infection, unspecified (principal); I10 Essential (primary) hypertension; R19.7 Diarrhea, unspecified; E11.65 Type 2 diabetes mellitus with hyperglycemia; R74.0 Nonspecific elevation of levels of transaminase and lactic acid dehydrogenase [LDH]; R94.5 Abnormal results of liver function studies; E66.9 Obesity, unspecified; Z68.38 Body mass index [BMI] 38.0-38.9, adult
CPT/HCPCS: 80307; 82947-QW; 96374; A9585; G0480; J0360; J1170; J1650; J1885; J2060; J2405; J2550; J3475; Q9967

== ENCOUNTER 2016-12-28 14:31 | Emergency (ER) | payer BC, OTHER ==
[2016-12-28] MEDS ORDERED: ONDANSETRON 4 MG/2 ML VIAL IVP ONE (14:55)
[2016-12-28] MEDS ORDERED: NS 1,000 ML IV ONE (14:55)
[2016-12-28] MEDS ORDERED: fentaNYL 100 MCG/2 ML INJ IVP ONE (14:55)
--- NOTE | 2016-12-28 14:55 | EDPHY ---
H & P Time Seen by Provider: 12/28/16 14:48 HPI/ROS: CHIEF COMPLAINT: Abdominal pain and nausea HISTORY OF PRESENT ILLNESS: Patient was admitted to the hospital from December 22 through December 25 with pancreatitis. She was discharged and felt well on Thursday but then symptoms started again on Thursday. She describes periumbilical abdominal pain radiating to her back which is identical to her symptoms last week. She does have chronic diarrhea which is unchanged. She has nausea and vomited last night could eat anything today kept for half an egg sandwich. The pain yesterday was 6/10 and now it is 3/10 but she is here for severe nausea which is made it impossible for her to eat or drink today. REVIEW OF SYSTEMS: Eye: no change in vision ENT: no sore throat Cardiac: no chest pain or syncope Pulmonary: no cough or SOB Abdomen: HPI Musculoskeletal: no back pain Skin: no rash Neuro: no headache Constitutional: no fever : no urinary symptoms A comprehensive 10 point review of systems is otherwise negative aside from elements mentioned in the history of present illness. PAST MEDICAL HISTORY: Includes schizoaffective disorder, pancreatitis, diabetes , hypertension, cholecystectomy. Social history: No alcohol General Appearance: Alert and conversant, cooperative. Eyes: No scleral icterus. ENT, Mouth: Dry mucous membranes Respiratory: Normal respiratory effort, breath sounds equal, lungs are clear to auscultation. Cardiovascular: Regular rate and rhythm. Gastrointestinal: Abdomen is soft and non tender. No rebound or guarding, not distended, normal bowel sounds. Neurological: Alert and oriented x3. Normally conversant. Face symmetric, normal movement and sensation in all extremities. Skin: Bruising on both arms and just left and inferior to the umbilicus from needle sticks and injections last week. Musculoskeletal: No peripheral edema and no joint swelling. Psychiatric: Not agitated. Emergency Department course/MDM: Benign abdominal exam. The patient tells me her goal is to have her symptoms treated hopefully go home. Normal saline 1 L IV for nausea vomiting, Zofran 4 mg IV, fentanyl 50 mcg IV. Labs to include lipase and LFTs. 1615: Patient says she feels better, says "I am healthy, can I go home "which I think is entirely reasonable. Labs reviewed including normal lipase of 60. Smoking Status: Never smoked Constitutional: Initial Vital Signs Temperature (C) 36.6 C 12/28/16 14:38 Heart Rate 106 H 12/28/16 14:38 Respiratory Rate 20 12/28/16 14:38 Blood Pressure 181/97 H 12/28/16 14:38 O2 Sat (%) 96 12/28/16 14:38 O2 Delivery Mode Room Air O2 (L/minute) 2 Allergies/Adverse Reactions: benztropine mesylate [From Cogentin] Allergy (Severe, Verified 12/28/16 14:41) MUSCLE JERKING haloperidol [From Haldol] Allergy (Severe, Verified 12/28/16 14:41) MUSCLE JERKING haloperidol lactate [From Haldol] Allergy (Severe, Verified 12/28/16 14:41) MUSCLE JERKING Home Medications: Medication Instructions Recorded Bumetanide [Bumex (*)] 1 mg PO DAILY 10/03/13 Estrogens,Conjugated [Premarin 0.625 mg PO DAILY 10/03/13 0.625 MG (*)] Gabapentin [Neurontin 300 MG (*)] 1,200 mg PO HS 10/03/13 ARIPiprazole [Abilify 5 mg (*)] 5 mg PO HS 12/22/16 Diazepam [Valium 5 MG (*)] 10 mg PO HS 12/22/16 Herbals/Supplements -Info Only 1 ea PO DAILY 12/22/16 Ibuprofen [Motrin (*)] 400 mg PO DAILY PRN 12/22/16 Lisinopril [Zestril 20 mg (*)] 40 mg PO DAILY 12/22/16 Methocarbamol [Robaxin 750 mg (*)] 750 mg PO BID 12/22/16 Potassium Cl [Klor-Con 20 meq (*)] 20 meq PO DAILY 12/22/16 Venlafaxine Xr [Effexor Xr] 150 mg PO DAILY 12/22/16 metFORMIN HCL [Glucophage 500 mg 1,000 mg PO BIDMEAL 12/22/16 (*)] Calcium Carbonate [Tums 500MG (*)] 500 mg PO TID PRN tab.chew 12/25/16 Medical Decision Making Differential Diagnosis: Differential diagnosis considered for abdominal pain including but not limited to appendicitis, cholecystitis, pancreatitis, gastritis and urinary tract infection. - Data Points Laboratory Results: Laboratory Results 12/28/16 15:12 12/28/16 15:12 12/28/16 12/28/16 15:12 15:12 WBC 11.88 10^3/uL H 10^3/uL (3.80-9.50) RBC 3.88 10^6/uL L 10^6/uL (4.18-5.33) Hgb 11.9 g/dL L g/dL (12.6-16.3) Hct 34.8 % L % (38.0-47.0) MCV 89.7 fL fL (81.5-99.8) MCH 30.7 pg pg (27.9-34.1) MCHC 34.2 g/dL g/dL (32.4-36.7) RDW 12.5 % % (11.5-15.2) Plt Count 296 10^3/uL 10^3/uL (150-400) MPV 9.6 fL fL (8.7-11.7) Neut % (Auto) 66.5 % % (39.3-74.2) Lymph % (Auto) 21.6 % % (15.0-45.0) [place] % (Auto) 7.7 % % (4.5-13.0) Eos % (Auto) 3.3 % % (0.6-7.6) Baso % (Auto) 0.6 % % (0.3-1.7) Nucleat RBC Rel Count 0.0 % % (0.0-0.2) Absolute Neuts (auto) 7.90 10^3/uL H 10^3/uL (1.70-6.50) Absolute Lymphs (auto) 2.57 10^3/uL 10^3/uL (1.00-3.00) Absolute Monos (auto) 0.91 10^3/uL H 10^3/uL (0.30-0.80) Absolute Eos (auto) 0.39 10^3/uL 10^3/uL (0.03-0.40) Absolute Basos (auto) 0.07 10^3/uL 10^3/uL (0.02-0.10) Absolute Nucleated RBC 0.00 10^3/uL 10^3/uL (0-0.01) Immature Gran % 0.3 % % (0.0-1.1) Immature Gran # 0.04 10^3/uL 10^3/uL (0.00-0.10) Sodium 138 mEq/L mEq/L (134-144) Potassium 3.7 mEq/L mEq/L (3.5-5.2) Chloride 105 mEq/L mEq/L (97-110) Carbon Dioxide 23 mEq/l mEq/l (22-31) Anion Gap 10 mEq/L mEq/L (8-16) BUN 13 mg/dL mg/dL (7-23) Creatinine 1.0 mg/dL mg/dL (0.6-1.0) Estimated GFR 55 Glucose 106 mg/dL H mg/dL (70-100) Calcium 9.4 mg/dL mg/dL (8.5-10.4) Total Bilirubin 0.5 mg/dL mg/dL (0.1-1.4) Conjugated Bilirubin 0.3 mg/dL mg/dL (0.0-0.5) Unconjugated Bilirubin 0.2 mg/dL mg/dL (0.0-1.1) AST 20 IU/L IU/L (14-46) ALT 33 IU/L IU/L (9-52) Alkaline Phosphatase 74 IU/L IU/L (38-126) Total Protein 7.4 g/dL g/dL (6.3-8.2) Albumin 4.0 g/dL g/dL (3.5-5.0) Lipase 60 IU/L IU/L (23-300) Medications Given: Discontinued Medications Fentanyl (Sublimaze) 100 mcg IVP EDNOW ONE Stop: 12/28/16 14:56 Last Admin: 12/28/16 15:08 Dose: 100 mcg Sodium Chloride (Ns) 1,000 mls @ 0 mls/hr IV EDNOW ONE; Wide Open PRN Reason: Protocol Stop: 12/28/16 14:56 Last Admin: 12/28/16 15:08 Dose: 1,000 mls Ondansetron HCl (Zofran) 4 mg IVP EDNOW ONE Stop: 12/28/16 14:56 Last Admin: 12/28/16 15:08 Dose: 4 mg Departure - Departure Disposition: Home, Routine, Self-Care Clinical Impression: Abdominal pain Qualifiers: Abdominal location: periumbilical Qualified Code(s): R10.33 - Periumbilical pain Condition: Good Instructions: Acute Abdominal Pain (ED) Referrals: Joseph Ramos MD [Primary Care Provider] - As per Instructions (Please follow-up with Dr. Ramos this week as already scheduled.)
[2016-12-28 15:20] LABS: % IMMATURE GRANULYOCYTES 0.3 % (0.0-1.1); ABSOLUTE IMMATURE GRANULOCYTES 0.04 10^3/uL (0.00-0.10); ADD DIFF? NO; ADD MORPH? NO; ADD SCAN? NO; ATYPICAL LYMPHOCYTE FLAG 0 (0-99); FRAGMENT RBC FLAG 0 (0-99); HEMATOCRIT 34.8 % (38.0-47.0); HEMOGLOBIN 11.9 g/dL (12.6-16.3); LEFT SHIFT FLG 0 (0-99); LIPEMIA HEMOLYSIS FLAG 90 (0-99); MEAN CELL HEMOGLOBIN 30.7 pg (27.9-34.1); MEAN CELL HEMOGLOBIN CONCENTR. 34.2 g/dL (32.4-36.7); MEAN CELL VOLUME 89.7 fL (81.5-99.8); MEAN PLATELET VOLUME 9.6 fL (8.7-11.7); PLATELET CLUMPS FLAG 0 (0-99); PLATELET COUNT 296 10^3/uL (150-400); RED BLOOD CELL COUNT 3.88 10^6/uL (4.18-5.33); RED CELL DISTRIBUTION WIDTH 12.5 % (11.5-15.2)
[2016-12-28 15:33] LABS: ALANINE AMINOTRANSFERASE 33 IU/L (9-52); ALKALINE PHOSPHATASE 74 IU/L (38-126); ANION GAP 10 mEq/L (8-16); ASPARTATE AMINOTRANSFERASE 20 IU/L (14-46); BILIRUBIN,TOTAL 0.5 mg/dL (0.1-1.4); BILIRUBIN-CONJUGATED 0.3 mg/dL (0.0-0.5); BILIRUBIN-UNCONJUGATED 0.2 mg/dL (0.0-1.1); CALCIUM 9.4 mg/dL (8.5-10.4); CARBON DIOXIDE 23 mEq/l (22-31); CHLORIDE 105 mEq/L (97-110); GLOMERULAR FILTRATION RATE 55; GLUCOSE 106 mg/dL (70-100); POTASSIUM 3.7 mEq/L (3.5-5.2); SODIUM 138 mEq/L (134-144); TOTAL PROTEIN 7.4 g/dL (6.3-8.2)
[2016-12-28 16:21] VITALS: BP 158/99; PULSE 98; RESP 16; TEMP 97.5; O2SAT 94
== END 2016-12-28 16:25 | disposition home or self-care (01) ==
DX: R10.33 Periumbilical pain (principal); E11.9 Type 2 diabetes mellitus without complications; I10 Essential (primary) hypertension; E86.9 Volume depletion, unspecified; Z79.84 Long term (current) use of oral hypoglycemic drugs; Z90.49 Acquired absence of other specified parts of digestive tract
CPT/HCPCS: 96374; J2405; J3010

== ENCOUNTER 2017-01-12 10:03 | Day surgery (SDC) | payer BC, OTHER ==
[2017-01-12] MEDS ORDERED: LIDOCAINE 1% 2 ML INJ ID PRN (10:42)
[2017-01-12] MEDS ORDERED: LR 1,000 ML IV ONE (10:42)
--- NOTE | 2017-01-12 11:42 | PDANEPAE ---
ANE History of Present Illness 66 year old female with PMHx of obesity, HTN, pre-diabetes (on Metformin), anxiety/depression / schizoaffective disorder presents for EGD / EUS. ANE Past Medical History - Cardiovascular History Hx Hypertension: Yes Hx Arrhythmias: No Hx Chest Pain: No Hx Coronary Artery / Peripheral Vascular Disease: No Hx CHF / Valvular Disease: No Hx Palpitations: No - Pulmonary History Hx COPD: No Hx Asthma/Reactive Airway Disease: No Hx Recent Upper Respiratory Infection: No Hx Oxygen in Use at Home: No Hx Sleep Apnea: No Sleep Apnea Screening Result - Last Documented: Positive Pulmonary History Comment: ines triggers - Neurologic History Hx Cerebrovascular Accident: No Hx Seizures: No Hx Dementia: No - Endocrine History Hx Diabetes: Yes Hypothyroid: No Hyperthyroid: No Obesity: yes, moderate Endocrine History Comment: type 2 - Renal History Hx Renal Disorders: No - Liver History Hx Hepatic Disorders: Yes Hepatic History Comment: elevated lft's. acute pancreatitis 12/22-12/25/16 - Neurological & Psychiatric Hx Hx Neurological and Psychiatric Disorders: Yes Neurological / Psychiatric History Comment: anxiety. depression. schizoaffective disorder - Cancer History Hx Cancer: No - Congenital Disorder History Hx Congenital Disorders: No - GI History Hx Gastrointestinal Disorders: Yes Gastrointestinal History Comment: reflux. chronic diarrhea since 01/2013. lactose intolerant - Other Health History Other Health History: wears glasses. bruises easily. dental bridges - Chronic Pain History Chronic Pain: No - Surgical History Prior Surgeries: left margie. radical hysterectomy. alejandro. bunionectomy- right. bengin lumpectomy- left breast ANE Review of Systems Review of Systems: - Exercise capacity Exercise capacity: <4 METS METS (RN): 3 METS ANE Patient History - Allergies Allergies/Adverse Reactions: benztropine mesylate [From Cogentin] Allergy (Severe, Verified 01/05/17 14:16) MUSCLE JERKING cyanocobalamin (vitamin B12) Allergy (Severe, Verified 01/12/17 11:21) Hives haloperidol [From Haldol] Allergy (Severe, Verified 01/05/17 14:16) MUSCLE JERKING haloperidol lactate [From Haldol] Allergy (Severe, Verified 01/05/17 14:16) MUSCLE JERKING - Home Medications Home medications: home medication list seen and reviewed Home Medications: Bumetanide [Bumex (*)] 10/03/13 [Last Taken 1 Day Ago ~01/11/17] Estrogens,Conjugated [Premarin 0.625 MG (*)] 10/03/13 [Last Taken 01/12/17 06: 00] Gabapentin [Neurontin 300 MG (*)] 10/03/13 [Last Taken 1 Day Ago ~01/11/17] ARIPiprazole [Abilify 5 mg (*)] 12/22/16 [Last Taken 1 Day Ago ~01/11/17] Diazepam [Valium 5 MG (*)] 12/22/16 [Last Taken 1 Day Ago ~01/11/17] Herbals/Supplements -Info Only 12/22/16 [Last Taken 01/05/17] Ibuprofen [Motrin (*)] 12/22/16 [Last Taken 01/05/17] Lisinopril [Zestril 20 mg (*)] 12/22/16 [Last Taken 01/12/17 06:00] Methocarbamol [Robaxin 750 mg (*)] 12/22/16 [Last Taken 1 Day Ago ~01/11/17] Potassium Cl [Klor-Con 20 meq (*)] 12/22/16 [Last Taken 1 Day Ago ~01/11/17] Venlafaxine Xr [Effexor Xr] 12/22/16 [Last Taken 01/12/17 06:00] metFORMIN HCL [Glucophage 500 mg (*)] 12/22/16 [Last Taken 1 Day Ago ~01/11/17] Calcium Carbonate [Tums 500MG (*)] 01/05/17 [Last Taken 1 Week Ago ~01/05/17] Ondansetron Odt [Zofran Odt] 01/05/17 [Last Taken 1 Week Ago ~01/05/17] - NPO status NPO Status: no food or drink >8 hours NPO Since - Liquids (Date): 01/12/17 NPO Since - Liquids (Time): 07:00 NPO Since - Solids (Date): 01/11/17 NPO Since - Solids (Time): 18:00 - Anes Hx Anes Hx: no prior problems - Smoking Hx Smoking Status: Never smoked Marijuana use: No - Alcohol Use Alcohol Use: None - Family Anes Hx Family Anes Hx: neg - N/A Family Hx Anesthesia Complications: none ANE Labs/Vital Signs - Vital Signs Vital Signs: reviewed preoperatively; see RN documention for details Blood Pressure: 186/97 Heart Rate: 96 Respiratory Rate: 18 O2 Sat (%): 95 Height: 167.64 cm Weight: 111.1 kg ANE Physical Exam - Airway Neck exam: FROM, short neck Mallampati Score: Class 2 Mouth exam: normal dental/mouth exam - Pulmonary Pulmonary: no respiratory distress - Cardiovascular Cardiovascular: regular rate and rhythym - ASA Status ASA Status: III ANE Anesthesia Plan Anesthesia Plan: GA with mask Total IV Anesthesia: Yes
[2017-01-12] MEDS ORDERED: PROPOFOL/EMULSION 500 MG/50 ML BOTTLE IV ONE ×3 (11:56→12:39)
[2017-01-12] MEDS ORDERED: fentaNYL 100 MCG/2 ML INJ IVP PRN (11:59)
[2017-01-12] MEDS ORDERED: NALOXONE HCL 0.4 MG/ML INJ IVP PRN (11:59)
[2017-01-12] MEDS ORDERED: LR 500 ML IV PRN (11:59)
[2017-01-12 13:13] VITALS: PULSE 98
--- NOTE | 2017-01-12 13:29 | GIREPORT ---
[facility] Surgical Services - Endoscopy Department Patient Name: Palmira Urena Procedure Date: 01/12/2017 11:27 AM Patient Type: Outpatient Attending MD/ ER Physician: Bairon Manrique MD Procedure: Upper EUS Indications: Common bile duct dilation (acquired) seen on CT scan, Elevated liver enzymes, Acute pancreatitis Patient Profile: 66 year old female with a history of CCY presents for evaluation of dil ated CBD, recurrent pancreatitis and LFTs. She is also experiencing a epigas tric pain which is worse with eating. Providers: Bairon Manrique MD Medicines: Monitored Anesthesia Care Complications: No immediate complications. Estimated blood loss: Minimal. Description of Procedure: After obtaining informed consent, the endoscope was passed under direct vision. Throughout the procedure, the patient's blood pressure, pulse, and oxygen saturations were monitored continuously. The Endosonoscope was introduced through the mouth, and advanced to the second part of duoden um. The Endoscope was introduced through the mouth, and advanced to the sec ond part of duodenum. The esophagus, stomach, and duodenum were visualized endosonographically. The upper EUS was accomplished without difficulty. The patient tolerated the procedure well. Findings: Endoscopic Finding : The examined esophagus was normal. A small hiatal hernia was present. Patchy mildly erythematous mucosa was found in the gastric body and in the gastric antrum. Biopsies were taken with a cold forceps for histology. The examined duodenum was normal. Biopsies were taken with a cold force ps for histology. Endosonographic Finding : A pancreatic parenchymal abnormality was noted in the pancreatic head. It consisted of a small 1cm area of hypoechoic changes. Unsure whether thi s is a mass versus area of fatty sparing versus inflammatatory lesoin versus other?. Fine needle aspiration for cytology was performed. Color Dopple r imaging was utilized prior to needle puncture to confirm a lack of significant vascular structures within the needle path. Two passes were made with the 25 gauge needle using a transduodenal approach. A stylet was u sed. A hogshead salvage was present and performed a preliminary cytologic examinat ion. Final cytology results are pending. Pancreatic parenchymal abnormalities were noted in the entire pancreas. These consisted of hyperechoic foci and a hyperechoic ductal wall. The main pancreatic duct was not dilated. There was no sign of significant endosonographic abnormality in the ent cristo main bile duct. The maximum diameter of the duct was 6 mm. No stones an d no biliary sludge were identified. No lymphadenopathy seen. Estimated Blood Loss: Estimated blood loss was minimal. Post Op Diagnosis: - Normal esophagus. - Small hiatal hernia. - Erythematous mucosa in the gastric body and antrum. Biopsied. - Normal examined duodenum. Biopsied. - Pancreatic parenchymal abnormalities consisting of a small 1cm area o f hypoechoic changes. Unsure if mass versus area of fatty spar were noted in the pancreatic head. Fine needle aspiration performed. - Pancreatic parenchymal abnormalities consisting of hyperechoic foci w ere noted in the entire pancreas. - There was no sign of significant pathology in the entire main bile du ct. - Etiology of pain? Unsure of etiology? Will await FNA and biopsy resul ts. Recommendation: - Discharge patient to home (with escort). - Clear liquid diet till tomorrow. - Await cytology results and await path results. - If cytology unrevealing, will recommend surveillance imaging. - More recommendations once results are back. - Thank you for allowing me to participate in the care of your patient. Attending Participation: I personally performed the entire procedure. Bairon Manrique MD Bairon Manrique MD 01/12/2017 1:28:39 PM This report has been signed electronicallyBairon Manrique MD Number of Addenda: 0 Note Initiated On: 01/12/2017 11:27 AM [email or web address]
[2017-01-12 14:22] VITALS: BP 160/92; RESP 16; TEMP 97.5; O2SAT 93
--- NOTE | 2017-01-12 14:22 | POSTANESTH ---
Post Anesthetic Evaluation Cardiovascular Status: Normal, Stable, Similar to Pre-Op Cond Respiratory Status: Normal, Stable, Similar to Pre-op Cond. Level of Consciousness/Mental Status: Can Participate in Eval, Alert and Oriented Pain Control: Adequate, Prn Tx Ordered Nausea/Vomiting Control: Adequate, Prn Tx Ordered Complications Possibly Related to Anesthesia: None Noted
== END 2017-01-12 14:29 | disposition home or self-care (01) ==
LOC: FSGY 10:03
PROVIDERS: ATTEND Internal Medicine Gastroenterology
PROC: 0FBG4ZX Excision of Pancreas, Percutaneous Endoscopic Approach, Diagnostic (ICD-10-PCS; principal; 2017-01-12 11:45)
PROC: 0DB68ZX Excision of Stomach, Via Natural or Artificial Opening Endoscopic, Diagnostic (ICD-10-PCS; principal; 2017-01-12 11:45)
PROC: 0DB98ZX Excision of Duodenum, Via Natural or Artificial Opening Endoscopic, Diagnostic (ICD-10-PCS; principal; 2017-01-12 11:45)
DX: K85.90 Acute pancreatitis without necrosis or infection, unspecified (principal); K59.1 Functional diarrhea; K44.9 Diaphragmatic hernia without obstruction or gangrene; I10 Essential (primary) hypertension; G47.30 Sleep apnea, unspecified; E11.9 Type 2 diabetes mellitus without complications; Z79.84 Long term (current) use of oral hypoglycemic drugs
CPT/HCPCS: J2704

== ENCOUNTER → 2017-03-23 | Outpatient (CLI) | payer OTHER, BC | LOC: FIMAGING 10:54 | PROVIDERS: ATTEND Family Medicine | DX: S22.42XA Multiple fractures of ribs, left side, initial encounter for closed fracture (principal) ==

== ENCOUNTER → 2017-04-29 | Outpatient (CLI) | payer OTHER | LOC: FIMAGING 12:02 | PROVIDERS: ATTEND Family Medicine | DX: S22.42XA Multiple fractures of ribs, left side, initial encounter for closed fracture (principal) ==

== ENCOUNTER → 2017-05-21 | Outpatient (CLI) | payer OTHER | LOC: FIMAGING 09:54 | PROVIDERS: ATTEND Internal Medicine Gastroenterology | DX: K83.8 Other specified diseases of biliary tract (principal); K57.30 Diverticulosis of large intestine without perforation or abscess without bleeding | CPT/HCPCS: 74160; Q9967 ==

== ENCOUNTER → 2017-12-25 | Outpatient (CLI) | payer OTHER | LOC: FIMAGING 11:31 | PROVIDERS: ATTEND Orthopaedic Surgery Hand Surgery | DX: S42.252A Displaced fracture of greater tuberosity of left humerus, initial encounter for closed fracture (principal); M25.412 Effusion, left shoulder ==

== ENCOUNTER → 2018-03-11 | Outpatient (CLI) | payer OTHER ==
[~2018-03-11] MED LIST changes: -IOPAMIDOL (ISOVUE 370) 100 ML BTL IV ONE; +IOPAMIDOL (ISOVUE-300) 100 ML BTL ONE
== END ==
LOC: FIMAGING 08:17
PROVIDERS: ATTEND Physician Assistant
DX: Z13.818 Encounter for screening for other digestive system disorders (principal); R19.7 Diarrhea, unspecified; Z90.49 Acquired absence of other specified parts of digestive tract
CPT/HCPCS: 74160; Q9967; 82565-PO

== ENCOUNTER 2018-06-11 08:57 | Emergency (ER) | payer OTHER ==
[2018-06-11] MEDS ORDERED: NS 1,000 ML IV ONE (09:33)
[2018-06-11] MEDS ORDERED: PROMETHAZINE HCL 25 MG/ML INJ IVP ONE (09:33)
[2018-06-11] MEDS ORDERED: KETOROLAC 30 MG/1 ML SDV IVP ONE (09:33)
--- NOTE | 2018-06-11 09:54 | EDPHY ---
H & P Stated Complaint: RUQ pain Time Seen by Provider: 06/11/18 09:28 HPI/ROS: CHIEF COMPLAINT: Abdominal pain HISTORY OF PRESENT ILLNESS: 67-year-old female presents with right-sided abdominal pain. Onset of abdominal pain 4 days ago. The pain started in right flank area and migrated to the right lower quadrant. The pain waxes and wanes. Last night the pain was severe and associated with multiple episodes of vomiting. Pain is currently located in the right lower quadrant and is mild. No nausea now, urinary symptoms or fever. REVIEW OF SYSTEMS: complete 10 point ROS reviewed and is negative except for the noted elements in the HPI - Personal History Tetanus Vaccine Date: 05/2011 - Medical/Surgical History Hx Asthma: No Hx Chronic Respiratory Disease: No Hx Diabetes: Yes Hx Cardiac Disease: No Hx Renal Disease: No Hx Cirrhosis: No Hx Alcoholism: Yes Hx HIV/AIDS: No Hx Splenectomy or Spleen Trauma: No Other PMH: chronic diarrhea, L TSA. HTN, radical hysterectemy, rt foot sx, cholecystomy, lactose intolerance, pancreatitis - Social History Smoking Status: Never smoked Additional Social History: - Physical Exam Exam: General Appearance: Alert, pleasant Eyes: Pupils equal and round, no conjunctival pallor ENT, Mouth: Mucous membranes moist Neck: Normal inspection Respiratory: Lungs are clear to auscultation Cardiovascular: Regular rate and rhythm Gastrointestinal: Abdomen is soft mild right lower quadrant tenderness, no peritoneal signs Back: No CVA tenderness Neurological: A&O, nonfocal, normal gait Skin: Warm and dry Extremities: Normal inspection Psychiatric: Mood and affect normal Constitutional: Initial Vital Signs Temperature (C) 36.7 C 06/11/18 08:58 Heart Rate 84 06/11/18 08:58 Respiratory Rate 16 06/11/18 08:58 O2 Sat (%) 98 06/11/18 08:58 O2 Delivery Mode Room Air Allergies/Adverse Reactions: benztropine mesylate [From Cogentin] Allergy (Verified 12/28/17 16:36) muscle jerking cyanocobalamin (vitamin B12) Allergy (Verified 12/28/17 16:36) Hives haloperidol Allergy (Unverified 12/28/17 16:36) muscle jerking Home Medications: Medication Instructions Recorded Bumetanide [Bumex (*)] 10/03/13 Estrogens,Conjugated [Premarin 10/03/13 0.625 MG (*)] Gabapentin [Neurontin 300 MG (*)] 10/03/13 ARIPiprazole [Abilify 5 mg (*)] 12/22/16 Herbals/Supplements -Info Only 12/22/16 Lisinopril [Zestril 20 mg (*)] 12/22/16 Venlafaxine Xr [Effexor Xr] 12/22/16 metFORMIN HCL [Glucophage 500 mg 12/22/16 (*)] Amitriptyline HCl 12/28/17 Amlodipine Besylate 12/28/17 Oxycodone HCl 12/28/17 Medical Decision Making - Diagnostics Imaging Results: Imaging Impressions Abdomen/Pelvis CT 06/11/18 09:47 Impression: 1. No acute abdominopelvic process. 2. Colonic diverticulosis. Findings and recommendations discussed with CONSTANZA MCCRARY at 1042 hour, 2018. Imaging: Discussed imaging studies w/ instrument processing tech Radiologist ED Course/Re-evaluation: This patient presents with waxing and waning right-sided abdominal and flank pain. Most consistent with renal colic. CT scan of the abdomen pelvis without IV contrast obtained and is unremarkable. No evidence of ureteral calculus and appendix is normal. Results discussed with the patient. She currently feels better. Abdominal exam remains benign. Would like to go home. Toradol 15 mg IV given prior to discharge. Warning signs discussed. She will return in 24 hr for persistent pain or sooner for any concerns. Differential Diagnosis: Differential diagnosis includes though it is not limited to appendicitis, cholecystitis, diverticulitis, pyelonephritis, bowel perforation, small bowel obstruction. - Data Points Laboratory Results: Laboratory Results 06/11/18 10:10 06/11/18 10:10 06/11/18 06/11/18 06/11/18 10:24 10:10 10:10 WBC 10.39 10^3/uL H 10^3/uL (3.80-9.50) RBC 4.20 10^6/uL 10^6/uL (4.18-5.33) Hgb 12.0 g/dL L g/dL (12.6-16.3) Hct 36.6 % L % (38.0-47.0) MCV 87.1 fL fL (81.5-99.8) MCH 28.6 pg pg (27.9-34.1) MCHC 32.8 g/dL g/dL (32.4-36.7) RDW 15.4 % H % (11.5-15.2) Plt Count 309 10^3/uL 10^3/uL (150-400) MPV 9.3 fL fL (8.7-11.7) Neut % (Auto) 71.6 % % (39.3-74.2) Lymph % (Auto) 22.2 % % (15.0-45.0) [place] % (Auto) 4.9 % % (4.5-13.0) Eos % (Auto) 0.3 % L % (0.6-7.6) Baso % (Auto) 0.6 % % (0.3-1.7) Nucleat RBC Rel Count 0.0 % % (0.0-0.2) Absolute Neuts (auto) 7.44 10^3/uL H 10^3/uL (1.70-6.50) Absolute Lymphs (auto) 2.31 10^3/uL 10^3/uL (1.00-3.00) Absolute Monos (auto) 0.51 10^3/uL 10^3/uL (0.30-0.80) Absolute Eos (auto) 0.03 10^3/uL 10^3/uL (0.03-0.40) Absolute Basos (auto) 0.06 10^3/uL 10^3/uL (0.02-0.10) Absolute Nucleated RBC 0.00 10^3/uL 10^3/uL (0-0.01) Immature Gran % 0.4 % % (0.0-1.1) Immature Gran # 0.04 10^3/uL 10^3/uL (0.00-0.10) Sodium 137 mEq/L mEq/L (135-145) Potassium 4.5 mEq/L mEq/L (3.5-5.2) Chloride 105 mEq/L mEq/L (97-110) Carbon Dioxide 26 mEq/l mEq/l (22-31) Anion Gap 6 mEq/L mEq/L (6-14) BUN 19 mg/dL mg/dL (7-23) Creatinine 1.0 mg/dL mg/dL (0.6-1.0) Estimated GFR 55 Glucose 88 mg/dL mg/dL (70-100) Calcium 9.5 mg/dL mg/dL (8.5-10.4) Total Bilirubin 0.2 mg/dL mg/dL (0.1-1.4) Conjugated Bilirubin 0.2 mg/dL mg/dL (0.0-0.5) Unconjugated Bilirubin 0.0 mg/dL mg/dL (0.0-1.1) AST 21 IU/L IU/L (14-46) ALT 25 IU/L IU/L (9-52) Alkaline Phosphatase 92 IU/L IU/L (38-126) Total Protein 7.3 g/dL g/dL (6.3-8.2) Albumin 4.1 g/dL g/dL (3.5-5.0) Lipase 116 IU/L IU/L (23-300) Urine Color PALE YELLOW Urine Appearance CLEAR Urine pH 5.0 (5.0-7.5) Ur Specific Ola 1.004 (1.002-1.030) Urine Protein NEGATIVE (NEGATIVE) Urine Ketones NEGATIVE (NEGATIVE) Urine Blood NEGATIVE (NEGATIVE) Urine Nitrate NEGATIVE (NEGATIVE) Urine Bilirubin NEGATIVE (NEGATIVE) Urine Urobilinogen NEGATIVE EU EU (0.2-1.0) Ur Leukocyte Esterase NEGATIVE (NEGATIVE) Urine Glucose NEGATIVE (NEGATIVE) Medications Given: Discontinued Medications Sodium Chloride (Ns) 1,000 mls @ 0 mls/hr IV EDNOW ONE; Wide Open PRN Reason: Protocol Stop: 06/11/18 09:34 Last Admin: 06/11/18 10:57 Dose: Not Given Ketorolac Tromethamine (Toradol) 30 mg IVP EDNOW ONE Stop: 06/11/18 09:34 Last Admin: 06/11/18 10:56 Dose: Not Given Ketorolac Tromethamine (Toradol) 15 mg IVP EDNOW ONE Stop: 06/11/18 11:13 Last Admin: 06/11/18 11:39 Dose: 15 mg Morphine Sulfate (Morphine) 4 mg IVP EDNOW ONE Stop: 06/11/18 09:34 Last Admin: 06/11/18 10:56 Dose: Not Given Promethazine HCl (Phenergan) 12.5 mg IVP ONCE ONE Stop: 06/11/18 09:34 Last Admin: 06/11/18 10:57 Dose: Not Given Departure - Departure Disposition: Home, Routine, Self-Care Clinical Impression: Abdominal pain Qualifiers: Abdominal location: right lower quadrant Qualified Code(s): R10.31 - Right lower quadrant pain Condition: Good Instructions: Acute Abdominal Pain (ED) Additional Instructions: Sometimes we are unable to diagnose an obvious cause of abdominal pain in the Emergency Department. Based upon our evaluation today, we see no obvious explanation for your pain. Because more serious conditions can be difficult to diagnose early in the course of their presentation, we ask that you return to the Emergency Department in 24 hours for a recheck if you are still having pain. This is necessary to exclude the development of a more serious condition such as appendicitis or other intra-abdominal emergency. In the event your pain markedly increases before that time or you develop intractable vomiting or fever return to the Emergency Department immediately. Tylenol 650mg every 4 hours as needed while the pain persists. Referrals: Joseph Ramos MD [Primary Care Provider] - As per Instructions
[2018-06-11 10:52] LABS: PLATELET COUNT 309 10^3/uL (150-400)
[2018-06-11] MEDS ORDERED: KETOROLAC 15 MG/1 ML SDV IVP ONE (11:12)
[2018-06-11 11:49] VITALS: BP 145/82
== END 2018-06-11 11:51 | disposition home or self-care (01) ==
DX: R10.31 Right lower quadrant pain (principal); K57.30 Diverticulosis of large intestine without perforation or abscess without bleeding; I10 Essential (primary) hypertension
CPT/HCPCS: 74176; 96374; 99285; J1885